=== PATIENT | female | born 1995 | race African-American/Black ===

== ENCOUNTER 2018-07-27 12:55 | Emergency (ER) | payer OTHER ==
[2018-07-27 13:39] LABS: Bilirubin Negative (Negative); Blood, Urine Moderate (Negative); Glucose, Urine (Dipstick) Negative (Negative); Leukocyte Large (Negative); Nitrite Positive (Negative); Protein, Urine (Dipstick) 100 mg/dL (Neg-Trace); Specific Gravity, Urine 1.015 (1.005-1.030)
[2018-07-27 13:47] LABS: Clarity Hazy (Clear)
[2018-07-27 13:54] LABS: Bacteria/HPF 2+ HPF (None Seen)
[2018-07-27] MEDS ORDERED: Ondansetron PF 4 MG/2 ML Vial ONE ×2 (13:57→16:58)
[2018-07-27] MEDS ORDERED: Sodium Chloride 0.9% 1,000 ML ONE ×3 (13:57→17:02)
[2018-07-27] MEDS ORDERED: Fentanyl 100 MCG/2 ML VIAL ONE ×2 (13:57→17:33)
[2018-07-27 14:06] LABS: Eosinophils 1 % (0-10); Hemoglobin 13.2 g/dL (12.0-16.0); Lymphocytes 7 % (21-51); MDiff Complete? YES; Mean Corpuscular HGB CONC 30.7 g/dL (32.0-36.0); Mean Corpuscular Hemoglobin 26.9 pg (27.0-31.0); Mean Corpuscular Volume 87.4 fL (78.0-98.0); Mean Platelet Volume 5.7 fL (7.4-10.4); Monocytes 8 % (0-10); Neutrophil 84 % (42-75); Platelet Count 302 thou/uL (130-400); RBC Distribution Width 12.9 % (11.5-14.5); White Blood Cell (WBC) Count 10.3 thou/uL (4.8-10.8)
[2018-07-27 14:07] LABS: ALT (SGPT) 9 U/L (8-55); AST (SGOT) 19 U/L (5-34); Albumin 4.5 g/dL (3.5-5.0); Alkaline Phosphatase 62 U/L (40-150); Anion Gap 17 mmol/L (10-20); BUN (Urea Nitrogen) 9 mg/dL (7.0-18.7); Bilirubin, Total 0.6 mg/dL (0.2-1.2); Calc. Creatinine Clearance 0 mL/min (70-130); Calcium 10.1 mg/dL (7.8-10.44); Carbon Dioxide 22 mmol/L (22-29); Chloride 103 mmol/L (98-107); Estimated GFR-MDRD Greater than 90; Globulin 3.8 g/dL (2.4-3.5); Glucose 110 mg/dL (70-105); Potassium 3.9 mmol/L (3.5-5.1); Protein, Total 8.3 g/dL (6.0-8.3); Sodium 138 mmol/L (136-145)
[2018-07-27] MEDS ORDERED: cefTRIAXone\\ROCEPHIN 2 GM VIAL ONE (14:35)
[2018-07-27] MEDS ORDERED: Sodium Chloride 0.9% 100 ML ONE (14:35)
[2018-07-27] MEDS ORDERED: Acetaminophen 500 MG TAB ONE (14:44)
[2018-07-27 15:00] LABS: Pregnancy Test - Urine (BHCG) Negative (Negative); Pregu Control Background? CLEAR/WHITE (CLR/WHITE); Pregu Control Bar Appear? YES (CONTROL BAR)
[2018-07-27] MEDS ORDERED: Sodium Chloride 0.9% 250 ML 250 ML ONE (15:57)
[2018-07-27] MEDS ORDERED: Ibuprofen 200 MG TAB ONE (18:17)
== END 2018-07-27 18:53 | disposition short-term general hospital (02) ==
LOC: NAV ERS 12:55
DX: A41.9 Sepsis, unspecified organism (principal); N39.0 Urinary tract infection, site not specified; D64.9 Anemia, unspecified; F41.9 Anxiety disorder, unspecified; F32.9 Major depressive disorder, single episode, unspecified
CPT/HCPCS: 80053; 81003; 81015; 81025; 83605; 85025; 87040; 87077; 87086; 87186; 96361; 96365; 96367; 96375; 96376; J0696; J2405; J3010; J3370; J3490; J7050